=== PATIENT | female | born 1990 | race Caucasian/White ===

== ENCOUNTER → 2021-01-24 | Outpatient (CLI) | payer BC ==
--- NOTE | 2021-01-24 11:05 | MM ---
Reason for exam: clinical finding. Baseline mammogram. History: Family history of breast cancer in maternal grandmother, breast cancer in 2 maternal aunts at age 40, and breast cancer in maternal aunt at age 50. Indicated problem(s): pain in the right breast. Physical Findings: Nurse did not find any significant physical abnormalities on exam. MG 3D Diag Mammo W/Cad RALPH Bilateral CC and MLO view(s) were taken. The breast tissue is heterogeneously dense. This may lower the sensitivity of mammography. No significant findings. These results were verbally communicated with the patient and result sheet given to the patient on 01/24/21. ASSESSMENT: Benign, BI-RAD 2 RECOMMENDATION: Routine screening mammogram of both breasts at age 34. Manage patient on a clinical basis.
== END | disposition home or self-care (01) ==
LOC: RADMAMWWP 09:30
PROVIDERS: ATTEND Family Medicine
DX: R92.2 Inconclusive mammogram (principal); Z80.3 Family history of malignant neoplasm of breast
CPT/HCPCS: 77062; 77066

== ENCOUNTER 2021-03-02 05:52 | Day surgery (SDC) | payer BC ==
[2021-03-01 12:27] VITALS: BMI 21.9
--- NOTE | 2021-03-01 16:36 | P.HPOB ---
History of Present Illness H&P Date: 03/01/21 Chief Complaint: Menorrhagia and secondary anemia. This patient is a pleasant 31-year-old 5 para 2 female who presented to my office for evaluation of heavy regular periods. Patient's hemoglobin at that time was 8.0 and a trans-vaginal ultrasound was ordered which showed it to be normal. I did refer the patient to hematology for her severe anemia and the are ranging an iron infusion I did recommend treatment obviously of the menorrhagia to correct the underlying problem. I did discuss other treatment options including trial of oral contraceptives however she did not want to do this option. She does have a history of section and subsequent tubal l igation. Patient did have approximately 8 years ago a section which showed a somewhat thin lower uterine segment however this did not show any defects on most recent transvaginal ultrasound and I believe she is a candidate for an endometrial ablation. Review of Systems Genitourinary: Reports menorrhagia Menstruation: Reports period heavy Past Medical History Additional Past Medical History / Comment(s): menorrhagia, anemia, iron transfusions History of Any Multi-Drug Resistant Organisms: None Reported Past Surgical History: Section, Tubal Ligation Additional Past Surgical History / Comment(s): x3 Past Anesthesia/Blood Transfusion Reactions: No Reported Reaction Past Psychological History: Bipolar, Depression Smoking Status: Former smoker Past Alcohol Use History: Occasional Additional Past Alcohol Use History / Comment(s): quit smoking 8 yrs ago (2012), smoked socially on weekends Past Drug Use History: None Reported - Past Family History Mother Family Medical History: Unable to Obtain Medications and Allergies Home Medications Medication Instructions Recorded Confirmed Type Escitalopram [Lexapro] 5 mg PO DAILY@1600 02/24/21 03/01/21 History L.acidoph,Paracasei, B.lactis 1 cap PO DAILY 02/24/21 03/01/21 History [Probiotic] Acetaminophen [Tylenol Extra 500 mg PO DIRECTED PRN 03/01/21 03/01/21 History Strength] Ibuprofen 200 mg PO DIRECTED PRN 03/01/21 03/01/21 History [place]-3 Fatty Acids/Fish Oil [Fish 1 each PO DAILY 03/01/21 03/01/21 History Oil 1,000 mg Softgel] Vitamin A (Unknown Dose) 1 dose PO DAILY 03/01/21 History Vitamin B Complex 1 each PO DAILY 03/01/21 03/01/21 History Vitamin C (Unknown Dose) 1 dose PO DAILY 03/01/21 History Vitamin D (Unknown Dose) 1 dose PO DAILY 03/01/21 History Vitamin E (Unknown Dose) 1 dose PO DAILY 03/01/21 History Allergies Allergy/AdvReac Type Severity Reaction Status Date / Time No Known Allergies Allergy Verified 03/01/21 12:00 Exam Intake and Output 03/01/21 03/01/21 03/01/21 06:59 14:59 22:59 Other: Weight 57.969 kg - OBG Physical Exam Abdomen: bowel sounds normal, no diffuse tenderness, no bruit present, no guarding noted, no hepatomegaly, no splenomegaly, no mass Vulva: both: normal Vagina: normal moisture, no discharge Cervix: no lesion, no discharge Uterus: normal size, normal contour Results Normal transvaginal ultrasound. Previous hemoglobin the office was 8.0. Assessment and Plan Assessment: This is a pleasant 31-year-old 5 para 2 female with long-standing menorrhagia and severe secondary anemia. Patient has seen hematology for iron infusions however plan is to proceed with endometrial ablation for definitive treatment for the cause of her anemia. Patient had a long discussion about options for treatment and the endometrial ablation. As stated previously and a previous section showed the lower uterine segment be somewhat thin however that was quite long period of time appears this is all healed an ultrasound does not show any evidence of defects. Plan therefore is hysteroscopy with D&C and NovaSure endometrial ablation. Patient understands this surgery and risks and risks of infection, bleeding, possible uterine perforation, and/or thermal injury. All the patient's questions have been answered and a written consent obtained. (1) Menorrhagia Status: Acute Code(s): N92.0 - EXCESSIVE AND FREQUENT MENSTRUATION WITH REGULAR CYCLE SNOMED Code(s): 024768683 (2) Anemia Status: Acute Code(s): D64.9 - ANEMIA, UNSPECIFIED SNOMED Code(s): 735479965
[~2021-03-02 05:52] MED LIST: LACTATED RINGERS 1,000 ML IV SCH; Pre Op ABX Message 1 EACH MISC MISCELLANE ONE
[2021-03-02] MEDS ORDERED: LIDOCAINE 1% (10MG/ML) FOR IV START INTRADERMA ONE (06:31)
[2021-03-02] MEDS ORDERED: ONDANSETRON 4 MG/2 ML VIAL ONE (06:34)
[2021-03-02] MEDS ORDERED: DEXAMETHASONE SOD PHOSPHATE 4 MG/ML 1 ML VIAL IV ONE (06:36)
[2021-03-02] MEDS ORDERED: ONDANSETRON 4 MG/2 ML VIAL IVP ONE (06:36)
[2021-03-02] MEDS ORDERED: fentaNYL (PF) 50 MCG/ML 2 ML AMP ONE (06:47)
[2021-03-02] MEDS ORDERED: LIDOCAINE 1% INJ 10MG/ML (20 ML MDV) ONE (06:47)
[2021-03-02] MEDS ORDERED: PROPOFOL 10 MG/ML 20 ML VIAL IV ONE (06:47)
[2021-03-02] MEDS ORDERED: MIDAZOLAM 2 MG/2 ML VIAL ONE (06:47)
--- NOTE | 2021-03-02 07:24 | P.OP ---
Date of Procedure: 03/02/21 Preoperative Diagnosis: Menorrhagia and secondary anemia Postoperative Diagnosis: Same Procedure(s) Performed: #1: Hysteroscopy. #2: Dilation and curettage. #3: NovaSure endometrial ablation Anesthesia: MAC Surgeon: Mert Ashton Estimated Blood Loss (ml): 10 Urine output (ml): 20 Pathology: other (Uterine contents) Condition: stable Disposition: PACU Indications for Procedure: Please see dictated H&P for intimate details of this patient's admission. Brief summary this pleasant 31-year-old multigravida patient with long-standing menorrhagia and severe secondary anemia. Patient's presenting for hysteroscopy D&C and NovaSure endometrial ablation. Patient I discussed the surgery and risks and risks of infection, bleeding, possible uterine perforation, and/or thermal injury. All the patient's questions are answered and a written consent obtained. Operative Findings: This patient had a normal-appearing endometrial cavity without evidence of polyps fibroids or other growths. Description of Procedure: This patient is taken to the operating room where she is laid in the supine position. She subsequently undergoes general mask anesthesia without incident. With an adequate level of anesthesia she's placed in dorsal lithotomy position. Bladder is drained for 20 mL of clear urine. Weighted speculum placed in posterior vagina. The anterior lip of cervix was grabbed with an Allis clamp. Uterus is gently sounded to 9.0 cm. Serial dilation is then done to allow the hysteroscope easily uterine cavity. Hysteroscopy is performed and the uterine cavity appears completely normal and is measured a length of 6.0 cm. This done the hysteroscope was removed. Cervix dilated slightly more to allow a small curette easily and uterine cavity. A gentle but thorough 4 quadrant curettage is done. With this done, the NovaSure device is then opened and appears to be intact. It is set at a length of 6.0 cm and opens up to a width of 4.5 cm. It is then seated in place and passes the cavity integrity test. Then enabled at 149 W setting for 93 seconds. NovaSure device is then removed and appears to be intact. Hysteroscopy is then performed the uterine cavity appears completely ablated up to the endocervix. Excellent results are noted. With this done the procedure is ended. The Allis clamp and weighted speculum removed. Patient is awakened from anesthesia and taken recovery room in satisfactory condition. All counts are correct 3. There are no complications.
[2021-03-02 07:26] VITALS: TEMP 97.7
[2021-03-02] MEDS ORDERED: IBUPROFEN 200 MG TAB PO ONE (08:10)
[2021-03-02 08:34] VITALS: BP 105/67; PULSE 56; RESP 18
== END 2021-03-02 09:17 | disposition home or self-care (01) ==
LOC: OR 05:52
PROVIDERS: ATTEND Obstetrics & Gynecology
DX: N92.0 Excessive and frequent menstruation with regular cycle (principal); D64.9 Anemia, unspecified; F31.9 Bipolar disorder, unspecified; Z87.891 Personal history of nicotine dependence; Z79.899 Other long term (current) drug therapy
CPT/HCPCS: 58563; 81025; 88305; J2250; J1100; J2405; J2001; J3010; J2704

== ENCOUNTER → 2022-09-19 | Outpatient (CLI) | payer BC ==
--- NOTE | 2022-09-19 09:55 | US ---
EXAMINATION TYPE: US groin LT DATE OF EXAM: 09/19/2022 COMPARISON: NONE CLINICAL HISTORY: K40.90 HERNIA. Left groin bulging sensation increasing x 1 year. FINDINGS: In the area of concern, a fat containing hernia is present upon valsalva. This hernia is completely compressible and lies lateral to the epigastric vessels (indirect). IMPRESSION: Fat-containing hernia is noted.
== END | disposition home or self-care (01) ==
LOC: RADUSWWP 08:17
PROVIDERS: ATTEND Family Medicine
DX: K40.90 Unilateral inguinal hernia, without obstruction or gangrene, not specified as recurrent (principal)

== ENCOUNTER 2022-10-30 08:57 | Day surgery (SDC) | payer BC ==
[2022-10-23 18:07] VITALS: BMI 21.2
[~2022-10-30 08:57] MED LIST changes: +ACETAMINOPHEN TAB 500 MG TAB PO PRN; +DEXAMETHASONE SOD PHOSPHATE 4 MG/ML 1 ML VIAL IV ONE; +HEPARIN SODIUM,PORCINE/PF 5,000 UNIT/0.5 ML SYRINGE SQ PRN; +HYDROmorphone 0.5 MG/0.5 ML SYRINGE IVP PRN; -LACTATED RINGERS 1,000 ML IV SCH; +LIDOCAINE 1% (10MG/ML) FOR IV START INTRADERMA PRN; +MIDAZOLAM 2 MG/2 ML VIAL IVP ONE; +ONDANSETRON 4 MG/2 ML VIAL IVP ONE; -Pre Op ABX Message 1 EACH MISC MISCELLANE ONE; +SCOPOLAMINE 1 MG/72 HR PATCH TRANSDERM ONE; +fentaNYL (PF) 50 MCG/1 ML VIAL IVP ONE
[2022-10-30 09:16] VITALS: RESP 16
[2022-10-30] MEDS: LACTATED RINGERS 1,000 ML IV SCH ×2 (09:19→13:05)
--- NOTE | 2022-10-30 10:11 | P.ANPRN ---
Procedure Note - Anesthesia - Nerve Block Performed Bilateral Erector Spinae Single Time Out Performed: Yes (940) Date of Procedure: 10/30/22 Procedure Start Time: 09:41 Procedure Stop Time: 09:46 Location of Patient: PreOp Indication: Acute Post-Operative Pain, Requested by Surgeon Specifically requested for management of pain by DrFelipe: Stephan Gooden Sedation Type: Sedate with meaningful contact maintained Preparation: Sterile Prep Position: Prone Catheter: None Needle Types: Pajunk Needle Gauge: 21 Ultrasound used to visualize needle placement: Yes Ultrasound used to observe medication spread: Yes Injectate: 0.5% Ropivacaine (see comment for volume) (15cc+10cc nacl pf each side) Blood Aspirated: No Pain Paresthesia on Injection Noted: No Resistance on Injection: Normal Image Stored and Saved: Yes Events: Uneventful and Well Tolerated
[2022-10-30] MEDS ORDERED: BUPIVACAIN-EPI 0.25%-1:200,000 30 ML VIAL SQ ONE ×3 (10:14→10:46)
[2022-10-30] MEDS ORDERED: ROPIVACAINE 5 MG/ML 30 ML VIAL ONE (10:25)
[2022-10-30] MEDS ORDERED: SODIUM CHLORIDE 0.9% (PF) 10 ML VIAL ONE (10:25)
[2022-10-30] MEDS ORDERED: fentaNYL (PF) 50 MCG/ML 2 ML AMP ONE (10:25)
[2022-10-30] MEDS ORDERED: NEOSTIGMINE 1 MG/ML 10 ML VIAL ONE (10:25)
[2022-10-30] MEDS ORDERED: KETAMINE 10 MG/ML 20 ML VIAL ONE (10:25)
[2022-10-30] MEDS ORDERED: GLYCOPYRROLATE 0.2 MG/ML 2 ML VIAL ONE (10:25)
[2022-10-30] MEDS ORDERED: LIDOCAINE 2% INJ 20 MG/ML (2 ML VIAL) ONE (10:25)
[2022-10-30] MEDS ORDERED: ROCURONIUM 10 MG/ML (5 ML VIAL) IV ONE (10:25)
[2022-10-30] MEDS ORDERED: MIDAZOLAM 2 MG/2 ML VIAL ONE (10:25)
[2022-10-30] MEDS ORDERED: KETOROLAC 15 MG/ML 1 ML VIAL ONE (10:25)
[2022-10-30] MEDS ORDERED: SUCCINYLCHOLINE CHLORIDE 200 MG/10 ML VIAL IV ONE (10:25)
[2022-10-30] MEDS ORDERED: PROPOFOL 10 MG/ML 20 ML VIAL IV ONE (10:25)
[2022-10-30] MEDS ORDERED: LACTATED RINGERS 1,000 ML IV ONE (10:47)
--- NOTE | 2022-10-30 11:14 | P.OP ---
Date of Procedure: 10/30/22 Preoperative Diagnosis: Left inguinal hernia Postoperative Diagnosis: Left inguinal hernia Procedure(s) Performed: Laparoscopic robotic-assisted repair of left inguinal hernia Transversus abdominis plane block Anesthesia: AFIA Surgeon: Stephan Gooden Estimated Blood Loss (ml): 5 Pathology: none sent Condition: stable Disposition: PACU Description of Procedure: The patient's placed on the operating table in the supine position. The patient received general anesthesia. The patient's abdomen was prepped and draped in usual sterile fashion. The skin was anesthetized 1% local Xylocaine at the incision sites. Using an 11 blade a skin incision was made at the umbilicus. The fascia was grasped with a Shannon and then the peritoneal cavity was entered with the Veress needle. Position of the Veress needle was confirmed with a positive drop test. After adequate insufflation a 5 mm trocar was placed into the peritoneal cavity. The Laparoscope was placed the peritoneal cavity. And a robotic 8 mm trocar was placed in the right lateral position and then another 8 mm robotic trochars placed in the left lateral position. The original 5 mm trocar was exchanged for a 12 mm trocar. A four-quadrant transversus abdominis plane block was then performed using 1% local Xylocaine. The patient was placed in reverse Trendelenburg and then the patient was docked to the robot. Next the peritoneum over top of the hernia was incised and then using blunt and sharp dissection and electrocautery the hernia sac was dissected free from the floor of the inguinal canal. The round ligament was divided. The hernia sac was completely reduced into the peritoneal cavity. And then using the Pro dental appliance fixer mesh the hernia was repaired. The peritoneum was then sutured with 20V lock suture. The patient was then undocked the robot. The needle was withdrawn from the peritoneal cavity. The umbilical trocar site was closed with 0 Ethibond suture. The skin was closed interrupted 3-0 Monocryl suture. Dermabond dressing was applied. Patient was sent to recovery in stable condition.
[2022-10-30 11:23] VITALS: TEMP 97
[2022-10-30 13:40] VITALS: PULSE 64
[2022-10-30 13:56] VITALS: BP 97/59
== END 2022-10-30 14:26 | disposition home or self-care (01) ==
LOC: OR 08:57
PROVIDERS: ATTEND Surgery
DX: K40.90 Unilateral inguinal hernia, without obstruction or gangrene, not specified as recurrent (principal); G89.18 Other acute postprocedural pain; F41.8 Other specified anxiety disorders; Z87.891 Personal history of nicotine dependence; Z88.0 Allergy status to penicillin; Z79.899 Other long term (current) drug therapy
CPT/HCPCS: 81025; 64461; 86900; 86901; 86850; 49650; C1781; J2250; J0330; J1100; J2710; J0690; J2405; J3010 ×2; J2795; J1885; J2704; J1644; J2001

== ENCOUNTER → 2024-05-08 | Outpatient (CLI) | payer SELFPAY ==
[2024-05-08 15:04] LABS: Basophils # (A) 0.04 X 10*3/uL (0.00-0.10); Basophils % (A) 0.8 %; Eosinophils # (A) 0.08 X 10*3/uL (0.04-0.35); Eosinophils % (A) 1.6 %; HGB 15.3 g/dL (12.0-15.0); Lymphocytes # (A) 1.29 X 10*3/uL (0.90-5.00); MCH 31.6 pg (27.0-32.0); MCHC 33.3 g/dL (32.0-37.0); Mean Platelet Volume 10.2 FL (9.5-12.2); Monocytes # (A) 0.53 X 10*3/uL (0.20-1.00); Monocytes % (A) 10.3 %; NRBC Per 100 WBC 0 X 10*3/uL (0.00-0.01); Neutrophils # (A) 3.19 X 10*3/uL (1.80-7.70); Neutrophils % (A) 61.9 %; Platelet Count 237 X 10*3/uL (140-440); RBC 4.84 X 10*6/uL (4.10-5.20); RDW 12.5 % (11.5-14.5); WBC 5.15 X 10*3/uL (4.50-10.00)
[2024-05-08 21:23] LABS: % Iron Saturation 19.22 (12.00-45.00); ALT 20 U/L (8-44); AST 19 U/L (13-35); Albumin 4.5 g/dL (3.8-4.9); Albumin/Globulin Ratio 2.14 Ratio (1.60-3.17); Alkaline Phosphatase 64 U/L (41-126); Blood Urea Nitrogen 14.7 mg/dL (9.0-27.0); Calcium 9.5 mg/dL (8.7-10.3); Carbon Dioxide 24.7 mmol/L (21.6-31.8); Chloride 110 mmol/L (96-109); Ferritin 64.2 ng/mL (10.0-291.0); Globulin 2.1 g/dL (1.6-3.3); Glucose 90 mg/dL (70-110); Iron 54 UG/DL (50-170); Potassium 4.1 mmol/L (3.5-5.5); Sodium 147 mmol/L (135-145); Total Bilirubin 0.3 mg/dL (0.3-1.2); Total Iron Binding Capacity 281 UG/DL (228-460); Total Protein 6.6 g/dL (6.2-8.2)
== END ==
LOC: LABWHC1 10:12
PROVIDERS: ATTEND Family Medicine
DX: R00.2 Palpitations (principal); R42 Dizziness and giddiness
CPT/HCPCS: 36415; 80053; 82306; 82728; 83540; 83550; 84443; 85025; 86038